=== PATIENT | female | born 1990 | race African-American/Black ===

== ENCOUNTER 2016-04-01 13:51 | Emergency (ER) | payer SELFPAY ==
--- NOTE | 2016-04-01 14:40 | ER Document Report ---
ED Medical Screen (RME) - General Stated Complaint: FLU LIKE SYMPTOMS Mode of Arrival: Ambulatory Information source: Patient Notes: 26 y/o F presents to ED complaining of generalized body aches, cough, and subjective fever since yesterday. I have greeted and performed a rapid initial assessment of this patient. A comprehensive ED assessment and evaluation of the patient, analysis of test results and completion of the medical decision making process will be conducted by additional ED providers. TRAVEL OUTSIDE OF THE [place] IN LAST 30 DAYS: No - Related Data Allergies/Adverse Reactions: No Known Allergies Allergy (Verified 04/01/16 14:37) Past Medical History - Immunizations Hx Diphtheria, Pertussis, Tetanus Vaccination: Yes Physical Exam - Vital signs Vitals: Temp Pulse Resp BP Pulse Ox 98.0 F 82 20 140/93 H 100 04/01/16 14:10 04/01/16 14:10 04/01/16 14:10 04/01/16 14:10 04/01/16 14:10 - Respiratory Respiratory status: No respiratory distress Breath sounds: Normal. No: Rhonchi, Wheezing Course - Vital Signs Vital signs: Temp Pulse Resp BP Pulse Ox 98.0 F 82 20 140/93 H 100 04/01/16 14:10 04/01/16 14:10 04/01/16 14:10 04/01/16 14:10 04/01/16 14:10
[2016-04-01 15:37] LABS: APPEARANCE,URINE SLIGHTLY-CLOUDY; BILIRUBIN,URINE NEGATIVE (NEGATIVE); GLUCOSE, URINE NEGATIVE (NEGATIVE); KETONES,URINE NEGATIVE (NEGATIVE); LEUKOCYTE ESTERASE,URINE NEGATIVE (NEGATIVE); NITRITE,URINE NEGATIVE (NEGATIVE); PROTEIN,URINE NEGATIVE (NEGATIVE); URINE SPECIFIC GRAVITY 1.027
--- NOTE | 2016-04-01 15:56 | ER Document Report ---
ED Flu Like - General Chief Complaint: Cough Stated Complaint: FLU LIKE SYMPTOMS Time seen by provider: 15:51 Mode of Arrival: Ambulatory Information source: Patient Notes: 26-year-old female presents to ED for flulike symptoms with nausea and slight difficulty breathing with body aches. TRAVEL OUTSIDE OF THE [place] IN LAST 30 DAYS: No - HPI Onset: This evening Timing/Duration: Intermittent Quality of pain: Achy Severity: Moderate Pain Level: 3 CO exposure: No Associated symptoms: Chills, Nonproductive cough, Fever, Nausea, Sore throat Similar symptoms previously: Yes Recently seen / treated by doctor: No - Related Data Allergies/Adverse Reactions: No Known Allergies Allergy (Verified 04/01/16 14:37) Past Medical History - General Information source: Patient - Social History Smoking Status: Current Every Day Smoker Cigarette use (# per day): Yes - half pack a day Chew tobacco use (# tins/day): No Smoking Education Provided: Yes - less than 2 minutes Frequency of alcohol use: Occasional Drug Abuse: Marijuana Occupation: [employer] Lives with: Parents Family History: CAD, DM, Hyperlipidemia, Hypertension, Malignancy, Thyroid Disfunction Patient has suicidal ideation: No Patient has homicidal ideation: No - Past Medical History Cardiac Medical History: Reports: None Pulmonary Medical History: Reports: None EENT Medical History: Reports: None Neurological Medical History: Reports: None Endocrine Medical History: Reports: None Renal/ Medical History: Reports: Hx Pelvic Inflammatory Disease Malignancy Medical History: Reports: None GI Medical History: Reports: None Musculoskeltal Medical History: Reports None Skin Medical History: Reports None Psychiatric Medical History: Reports: None Traumatic Medical History: Reports: None Infectious Medical History: Reports: None Surgical Hx: Negative Past Surgical History: Reports: None - Immunizations Immunizations up to date: Yes Hx Diphtheria, Pertussis, Tetanus Vaccination: Yes Review of Systems - Review of Systems Constitutional: Fever, Recent illness EENT: Nose congestion, Sinus pressure, Sinus discharge, Throat pain Cardiovascular: No symptoms reported Respiratory: Cough Gastrointestinal: No symptoms reported Genitourinary: No symptoms reported Female Genitourinary: No symptoms reported Musculoskeletal: No symptoms reported Skin: No symptoms reported Hematologic/Lymphatic: No symptoms reported Neurological/Psychological: No symptoms reported -: Yes All other systems reviewed and negative Physical Exam - Vital signs Vitals: Temp Pulse Resp BP Pulse Ox 98.0 F 82 20 140/93 H 100 04/01/16 14:10 04/01/16 14:10 04/01/16 14:10 04/01/16 14:10 04/01/16 14:10 Interpretation: Normal, Hypertensive - 140/93 - General General appearance: Appears well, Alert - HEENT Head: Normocephalic, Atraumatic Eyes: Normal Pupils: PERRL Ears: Normal External canal: Normal Tympanic membrane: Normal Sinus: Normal Nasal: Purulent discharge, Swelling Mouth/Lips: Normal Mucous membranes: Normal Pharynx: Post nasal drainage. No: Erythema, Exudate, Peritonsillar abscess, Retropharyngeal abscess, Tonsillar hypertrophy, Uvular edema, Potential airway comprom. Neck: Normal - Respiratory Respiratory status: No respiratory distress Chest status: Nontender Breath sounds: Normal Chest palpation: Normal - Cardiovascular Rhythm: Regular Heart sounds: Normal auscultation Murmur: No - Abdominal Inspection: Normal Distension: No distension Bowel sounds: Normal Tenderness: Nontender Organomegaly: No organomegaly - Back Back: Normal, Nontender - Extremities General upper extremity: Normal inspection, Nontender, Normal color, Normal ROM , Normal temperature General lower extremity: Normal inspection, Nontender, Normal color, Normal ROM , Normal temperature, Normal weight bearing. No: Terrell's sign - Neurological Neuro grossly intact: Yes Cognition: Normal Orientation: AAOx4 Luis F Coma Scale Eye Opening: Spontaneous Luis F Coma Scale Verbal: Oriented Luis F Coma Scale Motor: Obeys Commands [place] Coma Scale Total: 15 Speech: Normal Motor strength normal: LUE, RUE, LLE, RLE Sensory: Normal - Psychological Associated symptoms: Normal affect, Normal mood - Skin Skin Temperature: Warm Skin Moisture: Dry Skin Color: Normal Course - Vital Signs Vital signs: Temp Pulse Resp BP Pulse Ox 98.0 F 82 20 140/93 H 100 04/01/16 14:10 04/01/16 14:10 04/01/16 14:10 04/01/16 14:10 04/01/16 14:10 - Laboratory Laboratory results interpreted by me: 04/01/16 15:15 Urine Urobilinogen 2.0 H Discharge - Discharge Clinical Impression: URI (upper respiratory infection) Qualifiers: URI type: unspecified URI Qualified Code(s): J06.9 - Acute upper respiratory infection, unspecified Condition: Stable Disposition: HOME, SELF-CARE Instructions: Family Physicians / Practices Additional Instructions: UPPER RESPIRATORY ILLNESS: You have a viral infection of the respiratory passages -- a "cold." This common infection causes nasal congestion, drainage, and often sore throat and cough. It is highly contagious. The disease usually lasts about 10 to 14 days. There is no "cure" for the viral infection -- it must run its course. If there is a complication, such as bacterial infection in the nose, sinuses, middle ear, or bronchial tubes, antibiotics may be required. The antibiotics won't affect the virus. Drink plenty of fluids. A humidifier may help. An expectorant medication or decongestant may make you more comfortable. Use acetaminophen or ibuprofen for fever or aches. See the doctor if fever persists over two days, if there is any significant worsening of your symptoms, or if you simply fail to improve as expected. DECONGESTANT MEDICATION: A decongestant medicine has been suggested. Often this medicine is combined in the same tablet with an antihistamine or expectorant. This type of medicine is helpful in treating a bad cold or sinus condition, as well as in treatment of the nasal congestion of hay fever. It is not of much benefit for lung infections. Decongestant medicines are related to stimulants. They can cause an increase in blood pressure and heart rate. Persons with heart disease and high blood pressure should not take decongestants without discussing this with the physician. If you develop palpitations, chest pain, headache, or tremors, stop the medicine and consult your physician. COUGH-SUPPRESSANT & EXPECTORANT MEDICATION: You are to use a cough medication as needed for relief of symptoms. This medicine is a combination of an expectorant (to make the mucous thinner and more easily "coughed up") and a cough suppressant (to reduce the frequency of coughing). The cough-suppressant medicine is related to narcotics. You may experience mild nausea and sleepiness. Some patients who are very sensitive to narcotics may have stomach pain from this medicine. Taking the medicine with food reduces these side effects. Do not drive or work with machinery until you know how this medicine affects you. The expectorant should have no side effects. Iodine-containing expectorants (such as organidin) should not be taken by persons with active thyroid disease unless approved by your doctor. Call the doctor if you develop shortness of breath, hives, rash, itching, lightheadedness, or severe nausea and vomiting. USE OF ACETAMINOPHEN (Tylenol): Acetaminophen may be taken for pain relief or fever control. It's much safer than aspirin, offering a wider range of "safe" dosages. It is safe during . Some brand names are Tylenol, Panadol, Datril, Anacin 3, Tempra, and Liquiprin. Acetaminophen can be repeated every four hours. The following are maximum recommended dosages: >89 pounds or adults 650 mg to 900 mg Acetaminophen can be repeated every four hours. Maximum dose not to exceed 4000 mg a day. SMOKING: If you smoke, you should stop smoking. The tar and chemicals in cigarette smoke are harmful. Smoking has been shown to cause: emphysema chronic bronchitis lung cancer mouth and throat cancer stomach and pancreas cancer premature aging defects In addition, smoking increases ear and lung infections in children of smokers. FOLLOW-UP CARE: If you have been referred to a physician for follow-up care, call the physician s office for an appointment as you were instructed or within the next two days. If you experience worsening or a significant change in your symptoms, notify the physician immediately or return to the Emergency Department at any time for re-evaluation. Prescriptions: Ondansetron [Zofran Odt 4 mg Tablet] 1 tab PO Q6H #15 tab.rapdis Forms: Elevated Blood Pressure, Smoking Cessation Education, Return to Work
[2016-04-01 16:04] VITALS: BP 137/86
== END 2016-04-01 16:01 | disposition home or self-care (01) ==
LOC: ER 13:51
DX: J06.9 Acute upper respiratory infection, unspecified (principal); R06.00 Dyspnea, unspecified; M79.1 Myalgia; R68.83 Chills (without fever); F17.210 Nicotine dependence, cigarettes, uncomplicated
CPT/HCPCS: 81001; 81025; 87804; 99283

== ENCOUNTER 2016-06-05 11:41 | Emergency (ER) | payer SELFPAY ==
--- NOTE | 2016-06-05 11:57 | ER Document Report ---
ED Medical Screen (RME) - General Stated Complaint: ABDOMINAL PAIN Mode of Arrival: Ambulatory Information source: Patient Notes: Patient reports lower abdominal pain for the past 3 days. Patient was seen at [facility], and diagnosed with a viral illness given nausea medications. Patient denies any current vomiting or diarrhea symptoms continues with abdominal pain. No urinary symptoms, no vaginal bleeding or discharge. hx: PID, ovarian cyst I have greeted and performed a rapid initial assessment of this patient. A comprehensive ED assessment and evaluation of the patient, analysis of test results and completion of the medical decision making process will be conducted by additional ED providers. TRAVEL OUTSIDE OF THE [place] IN LAST 30 DAYS: No - Related Data Allergies/Adverse Reactions: No Known Allergies Allergy (Verified 06/05/16 11:55) Past Medical History Renal/ Medical History: Reports: Hx Pelvic Inflammatory Disease. Denies: Hx Peritoneal Dialysis - Immunizations Immunizations up to date: Yes Hx Diphtheria, Pertussis, Tetanus Vaccination: Yes Physical Exam - Vital signs Vitals: Temp Pulse Resp BP Pulse Ox 98.7 F 92 16 144/94 H 99 06/05/16 11:45 06/05/16 11:45 06/05/16 11:45 06/05/16 11:45 06/05/16 11:45 - Abdominal Tenderness: Tender - Lower abdomen Course - Vital Signs Vital signs: Temp Pulse Resp BP Pulse Ox 98.7 F 92 16 144/94 H 99 06/05/16 11:45 06/05/16 11:45 06/05/16 11:45 06/05/16 11:45 06/05/16 11:45
[2016-06-05 12:39] LABS: APPEARANCE,URINE CLEAR; BILIRUBIN,URINE NEGATIVE (NEGATIVE); GLUCOSE, URINE NEGATIVE (NEGATIVE); KETONES,URINE 20 mg/dL (NEGATIVE); LEUKOCYTE ESTERASE,URINE NEGATIVE (NEGATIVE); NITRITE,URINE NEGATIVE (NEGATIVE); PROTEIN,URINE NEGATIVE (NEGATIVE); URINE SPECIFIC GRAVITY 1.012; UROBILINOGEN,URINE NEGATIVE mg/dL (<2.0)
[2016-06-05 12:42] LABS: ABSOLUTE BASOPHILS # (AUTO) 0.1 10^3/uL (0.0-0.2); ABSOLUTE EOSINOPHILS # (AUTO) 0.1 10^3/uL (0.0-0.6); ABSOLUTE LYMPHOCYTES (AUTO) 2.1 10^3/uL (0.5-4.7); ABSOLUTE MONOCYTES (AUTO) 0.6 10^3/uL (0.1-1.4); ABSOLUTE NEUT (AUTO) 5.7 10^3/uL (1.7-8.2); BASOPHILS % (AUTO) 0.6 % (0-2); EOSINOPHILS % (AUTO) 0.7 % (0-6); HEMATOCRIT 39.8 % (36.0-47.0); HEMOGLOBIN 13.1 g/dL (12.0-15.5); HGB HCT DIFFERENCE -0.5; LYMPHOCYTES % (AUTO) 25.2 % (13-45); MEAN CORPUSCULAR HEMOGLOBIN 27.8 pg (27.0-33.4); MEAN CORPUSCULAR HGB CONC 32.9 g/dL (32.0-36.0); MEAN CORPUSCULAR VOLUME 84 fl (80-97); MONOCYTES % (AUTO) 7.2 % (3-13); RED BLOOD COUNT 4.71 10^6/uL (3.72-5.28); SEGMENTED NEUTROPHILS % (AUTO) 66.3 % (42-78); WHITE BLOOD COUNT 8.5 10^3/uL (4.0-10.5)
[2016-06-05 13:00] LABS: ALANINE AMINOTRANSFERASE 22 U/L (9-52); ALBUMIN 4.6 g/dL (3.5-5.0); ALKALINE PHOSPHATASE 58 U/L (38-126); ANION GAP 11 (5-19); ASPARTATE AMINO TRANSFERASE 19 U/L (14-36); BILIRUBIN,DIRECT 0.1 mg/dL (0.0-0.4); BILIRUBIN,TOTAL 1.1 mg/dL (0.2-1.3); BLOOD UREA NITROGEN 6 mg/dL (7-20); CALCIUM 10.1 mg/dL (8.4-10.2); CARBON DIOXIDE 27 mmol/L (22-30); CHLORIDE 105 mmol/L (98-107); CREATININE RESULT 0.67 mg/dL (0.52-1.25); GLUCOSE 76 mg/dL (75-110); LIPASE 50.9 U/L (23-300); POTASSIUM 3.8 mmol/L (3.6-5.0); SODIUM 143.2 mmol/L (137-145); TOTAL PROTEIN 7.5 g/dL (6.3-8.2)
[2016-06-05] MEDS ORDERED: NORMAL SALINE 1000 ML 1,000 ML IV ONE (16:16)
--- NOTE | 2016-06-05 16:38 | ER Document Report ---
ED GI/ - General Chief Complaint: Lower Abdominal Pain Stated Complaint: ABDOMINAL PAIN Time seen by provider: 16:10 Mode of Arrival: Ambulatory Information source: Patient Notes: 26-year-old female presents to ED for lower abdominal pain for 3 days. She states she's seen and [facility] diagnosed with a viral illness given nausea medicine. Patient to states she is no longer nausea or vomiting or diarrhea but she does continue to have lower abdominal pain. She denies any urinary symptoms or vaginal bleeding. She does have a history of PID and ovarian cyst. She states she has had pain with intercourse for the last week. TRAVEL OUTSIDE OF THE [place] IN LAST 30 DAYS: No - HPI Patient complains to provider of: Pelvic pain Onset: Other - 3 days Timing/Duration: Intermittent Quality of pain: Achy, Cramping Severity at maximum: Moderate Severity in ED: Moderate Pain Level: 3 Location: Pelvis Vaginal bleeding (Compared to normal period): None Associated symptoms: Vaginal discharge - White discharge. denies: Diarrhea, Nausea, Urinary hesitancy, Urinary frequency, Urinary retention, Urinary urgency Exacerbated by: Other - Sexual intercourse and movement Relieved by: Denies Similar symptoms previously: Yes Recently seen / treated by doctor: No - Related Data Allergies/Adverse Reactions: No Known Allergies Allergy (Verified 06/05/16 11:55) Past Medical History - General Information source: Patient - Social History Smoking Status: Current Some Day Smoker Cigarette use (# per day): Yes Chew tobacco use (# tins/day): No Smoking Education Provided: Yes - than 2 minutes Frequency of alcohol use: Occasional Drug Abuse: Marijuana Lives with: Spouse/Significant other Family History: Reviewed & Not Pertinent Patient has suicidal ideation: No Patient has homicidal ideation: No - Past Medical History Cardiac Medical History: Reports: None Pulmonary Medical History: Reports: None Neurological Medical History: Reports: None Endocrine Medical History: Reports: None Renal/ Medical History: Reports: Hx Ovarian Cysts, Hx Pelvic Inflammatory Disease GI Medical History: Reports: None Musculoskeltal Medical History: Reports None Skin Medical History: Reports None Psychiatric Medical History: Reports: None Traumatic Medical History: Reports: None Infectious Medical History: Reports: None Surgical Hx: Negative - Immunizations Immunizations up to date: Yes Hx Diphtheria, Pertussis, Tetanus Vaccination: Yes Review of Systems - Review of Systems Constitutional: No symptoms reported EENT: No symptoms reported Cardiovascular: No symptoms reported Respiratory: No symptoms reported Gastrointestinal: No symptoms reported Genitourinary: No symptoms reported Female Genitourinary: Vaginal discharge - White discharge, Other - Pelvic pain pain with sex Musculoskeletal: No symptoms reported Skin: No symptoms reported Hematologic/Lymphatic: No symptoms reported Neurological/Psychological: No symptoms reported -: Yes All other systems reviewed and negative Physical Exam - Vital signs Vitals: Temp Pulse Resp BP Pulse Ox 98.7 F 92 16 144/94 H 99 06/05/16 11:45 06/05/16 11:45 06/05/16 11:45 06/05/16 11:45 06/05/16 11:45 Interpretation: Normal - General General appearance: Appears well, Alert - HEENT Head: Normocephalic, Atraumatic Eyes: Normal Pupils: PERRL - Respiratory Respiratory status: No respiratory distress Chest status: Nontender Breath sounds: Normal Chest palpation: Normal - Cardiovascular Rhythm: Regular Heart sounds: Normal auscultation Murmur: No - Abdominal Inspection: Normal Distension: No distension Bowel sounds: Normal Tenderness: Tender - Bilateral pelvic pain Organomegaly: No organomegaly - Back Back: Normal, Nontender - Extremities General upper extremity: Normal inspection, Nontender, Normal color, Normal ROM , Normal temperature General lower extremity: Normal inspection, Nontender, Normal color, Normal ROM , Normal temperature, Normal weight bearing. No: Terrell's sign - Neurological Neuro grossly intact: Yes Cognition: Normal Orientation: AAOx4 Luis F Coma Scale Eye Opening: Spontaneous Luis F Coma Scale Verbal: Oriented Luis F Coma Scale Motor: Obeys Commands [place] Coma Scale Total: 15 Speech: Normal Motor strength normal: LUE, RUE, LLE, RLE Sensory: Normal - Psychological Associated symptoms: Normal affect, Normal mood - Skin Skin Temperature: Warm Skin Moisture: Dry Skin Color: Normal Course - Vital Signs Vital signs: Temp Pulse Resp BP Pulse Ox 98.5 F 82 16 132/81 H 99 06/05/16 18:28 06/05/16 18:28 06/05/16 18:28 06/05/16 18:28 06/05/16 18:28 - Laboratory Result Diagrams: 06/05/16 12:10 06/05/16 12:10 Laboratory results interpreted by me: 06/05/16 06/05/16 12:08 12:10 BUN 6 L Urine Ketones 20 H Discharge - Discharge Clinical Impression: Pelvic pain Condition: Stable Disposition: HOME, SELF-CARE Instructions: Family Physicians / Practices Additional Instructions: Pelvic Pain There are many causes of pain in the pelvic area. The cause could be the tubes, ovaries, uterus, intestines, appendix, pelvic muscles and connective tissue, or the urinary tract. The cause of your pelvic pain is not clear. However, it seems safe to treat you outside the hospital. If the pain sounds like a temporary problem, we sometimes wait to see if it goes away. Other patients may need additional tests, such as pelvic ultrasound or cultures. Conditions may change. Call us or come back for reexamination if any problems occur, such as: (1) Pain that becomes more severe, steady, or becomes concentrated in one specific area. Also, pain that is more severe with movement or coughing. (2) Vomiting that persists or becomes more frequent. (3) Blood in the vomitus, urine, or bowel movements. Blood in the stool may have a tarry or black appearance. (4) Shaking chills or fever greater than 100 degrees. (5) The abdomen becomes more distended or swollen. (6) Bowel movements cease. (7) Heavy vaginal bleeding. Intravenous (IV) Fluids As part of your care today, you received intravenous (IV) fluids. IV fluids are administered to patients who are dehydrated or to those who have certain chemical (electrolyte) abnormalities that need correcting. CEPHALOSPORINS: An antibiotic of the cephalosporin class has been prescribed. This type of antibiotic covers a wide variety of infections, including those of the skin, lungs, middle ear, and urinary tract. This antibiotic is somewhat similar to the penicillin family. In rare cases , a person who is allergic to penicillin will also be allergic to this medication. If you have had a severe allergic reaction to penicillin, and have not taken this antibiotic since that time, notify your doctor. Antibiotics which cover many germs ("broad spectrum" antibiotics) are more likely to cause diarrhea or "yeast" infections. Women prone to vaginal yeast problems may suffer an attack after taking this antibiotic. In infants, oral thrush (white spots "stuck" on the cheek) or yeast diaper rash may result. See your doctor if these problems occur. Call the doctor at once if you develop hives, itching, shortness of breath , or lightheadedness. AZITHROMYCIN: Azithromycin (Zithromax) is a broad spectrum antibiotic in the same class as erythromycin. It can treat a variety of bacterial infections, but is most frequently used for respiratory infections. Azithromycin is extremely long-lasting. It accumulates in body tissues and continues to kill bacteria for many days. In order to improve absorption, Azithromycin should be taken at least one hour before or two hours after a meal. It does not have the same strong tendency to upset the stomach as erythromycin and is usually very well tolerated. Patients who have had a rash or other true allergic reactions to erythromycin should not take this medication. Call if you develop gastrointestinal distress, severe diarrhea, rash, hives, itching, or shortness of breath. FOLLOW-UP CARE: If you have been referred to a physician for follow-up care, call the physician s office for an appointment as you were instructed or within the next two days. If you experience worsening or a significant change in your symptoms, notify the physician immediately or return to the Emergency Department at any time for re-evaluation. Forms: Elevated Blood Pressure, Smoking Cessation Education, Return to Work
[2016-06-05] MEDS ORDERED: CEFTRIAXONE INJ 250 MG VIAL IM ONE (18:13)
[2016-06-05] MEDS ORDERED: AZITHROMYCIN 250 MG TABLET PO ONE (18:13)
[2016-06-05] MEDS ORDERED: LIDOCAINE 1% INJ-PF (10 MG/ML) 30 ML SDV INJ ONE (18:13)
[2016-06-05 18:29] VITALS: BP 132/81
[2016-06-05 18:57] LABS: CHLAM PCR NOT DETECTED (NOT DETECT)
== END 2016-06-05 18:32 | disposition home or self-care (01) ==
LOC: ER 11:41
DX: N94.10 Unspecified dyspareunia (principal); R10.2 Pelvic and perineal pain; N89.8 Other specified noninflammatory disorders of vagina; F17.210 Nicotine dependence, cigarettes, uncomplicated; Z71.6 Tobacco abuse counseling; Z87.42 Personal history of other diseases of the female genital tract
CPT/HCPCS: 99284; 96372; 96360; 36415; 83690; 84703; 85025; 80053; 81001; 87491; 87591; J3490; J7030; J0696

== ENCOUNTER 2016-06-08 01:21 | Emergency (ER) | payer BC ==
[2016-06-08 02:32] LABS: ABSOLUTE EOSINOPHILS # (AUTO) 0.1 10^3/uL (0.0-0.6); ABSOLUTE LYMPHOCYTES (AUTO) 0.6 10^3/uL (0.5-4.7); ABSOLUTE MONOCYTES (AUTO) 0.7 10^3/uL (0.1-1.4); ABSOLUTE NEUT (AUTO) 8.2 10^3/uL (1.7-8.2); BASOPHILS % (AUTO) 0.3 % (0-2); EOSINOPHILS % (AUTO) 1.1 % (0-6); HEMATOCRIT 39.8 % (36.0-47.0); HEMOGLOBIN 13.5 g/dL (12.0-15.5); HGB HCT DIFFERENCE 0.7; LYMPHOCYTES % (AUTO) 5.8 % (13-45); MEAN CORPUSCULAR HEMOGLOBIN 28.3 pg (27.0-33.4); MEAN CORPUSCULAR HGB CONC 33.9 g/dL (32.0-36.0); MEAN CORPUSCULAR VOLUME 84 fl (80-97); MONOCYTES % (AUTO) 6.9 % (3-13); RED BLOOD COUNT 4.75 10^6/uL (3.72-5.28); RED CELL DISTRIBUTION WIDTH 13.8 % (11.5-14.0); SEGMENTED NEUTROPHILS % (AUTO) 85.9 % (42-78); WHITE BLOOD COUNT 9.6 10^3/uL (4.0-10.5)
[2016-06-08] MEDS ORDERED: MORPHINE SULFATE 10 MG/ML INJ IV ONE (02:36)
[2016-06-08] MEDS ORDERED: ONDANSETRON HCL INJ/PF 4 MG/2 ML SDV IV ONE (02:36)
[2016-06-08] MEDS ORDERED: NORMAL SALINE 1000 ML 1,000 ML IV ONE (02:36)
--- NOTE | 2016-06-08 02:41 | ER Document Report ---
ED General - General Chief Complaint: Abdominal Pain Stated Complaint: ABDOMINAL PAIN Mode of Arrival: Ambulatory Information source: Patient Notes: This is a 26-year-old previously healthy female who presents for evaluation of lower abdominal pain. She states she has had lower abdominal discomfort for the past week and this is her third visit for the same. One week ago she states she was seen at [facility] and was diagnosed with a stomach virus. 3 days ago she presented to the emergency department here with persistent lower abdominal discomfort and was given antibiotics for possible PID at that point. She states she's been compliant with her antibiotics but that tonight her lower abdominal pain has gotten worse. She has had 2 episodes of diarrhea today. She also had nausea and vomiting this evening. She denies any fevers or chills. TRAVEL OUTSIDE OF THE [place] IN LAST 30 DAYS: No - Related Data Allergies/Adverse Reactions: No Known Allergies Allergy (Verified 06/05/16 11:55) Past Medical History - General Information source: Patient - Social History Smoking Status: Never Smoker Chew tobacco use (# tins/day): No Frequency of alcohol use: Rare Drug Abuse: None Family History: Reviewed & Not Pertinent Patient has suicidal ideation: No Patient has homicidal ideation: No Renal/ Medical History: Reports: Hx Ovarian Cysts, Hx Pelvic Inflammatory Disease. Denies: Hx Peritoneal Dialysis Surgical Hx: Negative - Immunizations Immunizations up to date: Yes Hx Diphtheria, Pertussis, Tetanus Vaccination: Yes Review of Systems - Review of Systems Notes: REVIEW OF SYSTEMS: CONSTITUTIONAL : Denies fever, chills, or sweats. Denies recent illness. EENT: Denies eye, ear, throat, or mouth pain or symptoms. Denies nasal or sinus congestion. CARDIOVASCULAR: Denies chest pain. RESPIRATORY: Denies cough, cold, or chest congestion. Denies shortness of breath, difficulty breathing, or wheezing. GASTROINTESTINAL: As per history of present illness GENITOURINARY: Denies difficulty urinating, painful urination, burning, frequency, or blood in urine. FEMALE GENITOURINARY: Denies vaginal bleeding LMP:05/07 MUSCULOSKELETAL: Denies neck or back pain or joint pain or swelling. SKIN: Denies rash or skin lesions. HEMATOLOGIC : Denies easy bruising or bleeding. LYMPHATIC: Denies swollen, enlarged glands. NEUROLOGICAL: Denies altered mental status or loss of consciousness. Denies headache. PSYCHIATRIC: Denies anxiety or stress or depression. ALL OTHER SYSTEMS REVIEWED AND NEGATIVE. Physical Exam - Vital signs Vitals: Temp Pulse Resp BP Pulse Ox 98.3 F 103 H 20 150/102 H 100 06/08/16 01:51 06/08/16 01:51 06/08/16 01:51 06/08/16 01:51 06/08/16 01:51 - Notes Notes: PHYSICAL EXAMINATION: GENERAL: Well-appearing, well-nourished and in mild distress secondary to lower abdominal pain. She is pleasant and conversant.. HEAD: Atraumatic, normocephalic. EYES: Pupils equal round and reactive to light, extraocular movements intact, sclera anicteric, conjunctiva are normal. ENT: nares patent, oropharynx clear without exudates. Moist mucous membranes. NECK: Normal range of motion, supple without lymphadenopathy LUNGS: Breath sounds clear to auscultation bilaterally and equal. No wheezes rales or rhonchi. HEART: Regular rate and rhythm without murmurs ABDOMEN: Soft, mild lower abdominal tenderness to palpation. Normoactive bowel sounds. No guarding, no rebound. No peritonitis. No masses appreciated. EXTREMITIES: Normal range of motion NEUROLOGICAL: Cranial nerves grossly intact. No gross focal motor or sensory deficits appreciated.. PSYCH: Normal mood, normal affect. SKIN: Warm, Dry, normal turgor, no rashes or lesions noted. Course - Re-evaluation Re-evalutation: 06/08/16 07:05 Patient has remained comfortable and hemodynamically stable throughout her ER stay. Her CT and ultrasound demonstrates contracted gallbladder with small amount of pericholecystic fluid. The appearance of this is thought to favor hepatitis versus cholecystitis. At this point clinically her symptoms are more consistent with hepatitis that she does not have right upper quadrant pain but does have generalized abdominal discomfort nausea and vomiting and diarrhea. Hepatitis panel has been sent. Patient will follow up with her primary care physician and/or GI this week for further evaluation. We'll treat her supportively and symptomatically until then. Strict return precautions were discussed and patient and family are comfortable with this plan - Vital Signs Vital signs: Temp Pulse Resp BP Pulse Ox 98.3 F 103 H 20 150/102 H 100 06/08/16 01:51 06/08/16 01:51 06/08/16 01:51 06/08/16 01:51 06/08/16 01:51 - Laboratory Result Diagrams: 06/08/16 02:23 06/08/16 02:23 Laboratory results interpreted by me: 06/08/16 06/08/16 06/08/16 02:23 02:23 03:39 Plt Count 149 L Seg Neutrophils % 85.9 H Lymphocytes % 5.8 L AST 100 H ALT 66 H Ur Leukocyte Esterase TRACE H - Diagnostic Test Radiology reviewed: Reports reviewed Discharge - Discharge Clinical Impression: Nausea vomiting and diarrhea, Hepatitis Condition: Stable Disposition: HOME, SELF-CARE Additional Instructions: Hepatitis You have hepatitis. Hepatitis is an inflammation of the liver, usually caused by a virus. Usually there is a week or so of malaise, fatigue, aches, lack of appetite, and headache, followed by nausea and vomiting, dark urine, and jaundice. Cases of hepatitis A, B, or C are usually reported to the health department. Tests will determine what type of hepatitis you have: (1) Hepatitis B: This type of hepatitis is not highly contagious. It is usually transmitted by needles or sexual contact. The length of the illness is longer (a couple of months), and the chance of long-term complications is greater. Special immune globulin is available for sexual partners or others exposed to blood or body fluids. (2) Hepatitis A (infectious hepatitis): Hepatitis A is more contagious, but has a shorter length of illness (2-4 weeks). Close personal contacts may need gamma globulin shots to prevent hepatitis. (3) Hepatitis C: This type of hepatitis is passed by blood products or sexual contact. The initial illness is less severe, but there is a good chance the hepatitis will become chronic. (4) Non-specific hepatitis: Other viruses can cause hepatitis. These cases of hepatitis usually go away without permanent damage. There is no cure for hepatitis. While you are ill, you may receive medication to make you more comfortable. Do not drink alcohol, and don't take any drug or medication not approved by your doctor. Rest and try to eat a healthy diet. Use good handwashing so you don't spread the virus. Shared toys should be cleaned with disinfectant. Clean the toilets, sinks, and counter surfaces in bathrooms. Launder clothing in hot water. Return or call the doctor if you develop increasing abdominal pain, severe vomiting, dehydration, severe weakness, or confusion. As discussed and instructed, he needs to follow up with the primary care physician this week. Rest and drink plenty of fluids. Also please contact the office of for GI follow-up. Return to the ER for fever, severe abdominal pain, yellowing of the eyes, persistent vomiting, or any worsening symptoms or concerns. Prescriptions: Promethazine HCl [Phenergan 25 mg Tablet] 1 tab PO Q6H PRN #15 tablet PRN Reason: Forms: Return to Work Referrals: MEGHAN PATEL MD [ACTIVE STAFF] - 06/10/16
[2016-06-08 02:50] LABS: ALANINE AMINOTRANSFERASE 66 U/L (9-52); ALBUMIN 4.1 g/dL (3.5-5.0); ALKALINE PHOSPHATASE 80 U/L (38-126); ANION GAP 13 (5-19); ASPARTATE AMINO TRANSFERASE 100 U/L (14-36); BILIRUBIN,DIRECT 0.2 mg/dL (0.0-0.4); BILIRUBIN,TOTAL 1.1 mg/dL (0.2-1.3); BLOOD UREA NITROGEN 12 mg/dL (7-20); CARBON DIOXIDE 23 mmol/L (22-30); CHLORIDE 107 mmol/L (98-107); CREATININE RESULT 0.82 mg/dL (0.52-1.25); GLUCOSE 103 mg/dL (75-110); LIPASE 118.4 U/L (23-300); POTASSIUM 3.6 mmol/L (3.6-5.0); SODIUM 142.7 mmol/L (137-145); TOTAL PROTEIN 6.8 g/dL (6.3-8.2)
[2016-06-08] MEDS ORDERED: PROMETHAZINE HCL INJ 25 MG/1 ML VIAL IM ONE (03:35)
[2016-06-08] MEDS ORDERED: PROMETHAZINE HCL INJ 25 MG/1 ML VIAL ONE (03:37)
[2016-06-08 04:14] LABS: APPEARANCE,URINE CLEAR; BILIRUBIN,URINE NEGATIVE (NEGATIVE); GLUCOSE, URINE NEGATIVE (NEGATIVE); KETONES,URINE NEGATIVE (NEGATIVE); LEUKOCYTE ESTERASE,URINE TRACE (NEGATIVE); NITRITE,URINE NEGATIVE (NEGATIVE); PROTEIN,URINE NEGATIVE (NEGATIVE); URINE SPECIFIC GRAVITY 1.006; UROBILINOGEN,URINE NEGATIVE mg/dL (<2.0)
[2016-06-08 07:54] VITALS: BP 123/62
--- NOTE | 2016-06-08 08:58 | EKG REPORT ---
SEVERITY:- BORDERLINE ECG - SINUS RHYTHM PROBABLE LEFT ATRIAL ABNORMALITY MILD NONSPECIFIC INFERIOR [facility] : Confirmed by: Melo Abbott MD 08-Jun-2016 08:58:26
== END 2016-06-08 07:54 | disposition home or self-care (01) ==
LOC: ER 01:21
DX: K75.9 Inflammatory liver disease, unspecified (principal); K82.0 Obstruction of gallbladder; R10.30 Lower abdominal pain, unspecified; R19.7 Diarrhea, unspecified; R11.2 Nausea with vomiting, unspecified
CPT/HCPCS: 93005; 99284; 96372; 96374; 96375; 36415; 83690; 84703; 85025; 80053; 81001; 80074; 76705; 74177; 93010; J2270; J2550; J2405

== ENCOUNTER 2016-08-24 07:09 | Emergency (ER) | payer BC ==
[2016-08-24] MEDS ORDERED: DOXYCYCLINE HYCLATE 100 MG TABLET PO ONE (08:21)
[2016-08-24] MEDS ORDERED: LIDOCAINE 1% INJ-PF (10 MG/ML) 30 ML SDV INJ ONE (08:21)
--- NOTE | 2016-08-24 08:22 | ER Document Report ---
ED Skin Rash/Insect Bite/Abscs - General Chief Complaint: Abscess Stated Complaint: SKIN PROBLEM Time Seen by Provider: 08/24/16 08:19 Mode of Arrival: Ambulatory Information source: Patient Notes: Patient is a 26-year-old female with a history of abscesses but no history of MRSA who presents to the ER today for abscess to the buttock. She states that this began to her right buttocks 3 days ago when she tried to pop it at home but has been unsuccessful. Patient denies any fever, chills, drainage from the area, states that it is very painful and is getting larger. TRAVEL OUTSIDE OF THE [place] IN LAST 30 DAYS: No - Related Data Allergies/Adverse Reactions: No Known Allergies Allergy (Verified 08/24/16 07:33) Past Medical History - General Information source: Patient - Social History Smoking Status: Unknown if Ever Smoked Family History: Reviewed & Not Pertinent Patient has suicidal ideation: No Patient has homicidal ideation: No Renal/ Medical History: Reports: Hx Ovarian Cysts, Hx Pelvic Inflammatory Disease. Denies: Hx Peritoneal Dialysis - Immunizations Immunizations up to date: Yes Hx Diphtheria, Pertussis, Tetanus Vaccination: Yes Review of Systems - Review of Systems Constitutional: No symptoms reported EENT: No symptoms reported Cardiovascular: No symptoms reported Respiratory: No symptoms reported Gastrointestinal: No symptoms reported Genitourinary: No symptoms reported Female Genitourinary: No symptoms reported Musculoskeletal: No symptoms reported Skin: See HPI Hematologic/Lymphatic: No symptoms reported Neurological/Psychological: No symptoms reported Physical Exam - Vital signs Vitals: Temp Pulse Resp BP Pulse Ox 97.8 F 69 20 140/89 H 100 08/24/16 07:33 08/24/16 07:33 08/24/16 07:33 08/24/16 07:33 08/24/16 07:33 - Notes Notes: PHYSICAL EXAMINATION: GENERAL: Well-appearing and in no acute distress. HEAD: Atraumatic, normocephalic. EYES: Pupils equal round and reactive to light, extraocular movements intact, sclera anicteric, conjunctiva are normal. NECK: Normal range of motion, supple without lymphadenopathy LUNGS: CTAB and equal. No wheezes rales or rhonchi. HEART: Regular rate and rhythm without murmurs EXTREMITIES: Normal range of motion, no pitting edema. No cyanosis. NEUROLOGICAL: Cranial nerves grossly intact. Normal sensory/motor exams. PSYCH: Normal mood, normal affect. SKIN: Warm, Dry, normal turgor, 3cm in diameter abscess, induration and fluctuance noted to right buttocks, tender to palpation Course - Re-evaluation Re-evalutation: 08/24/16 10:35 Test was incised and drained successfully, a culture was collected and is pending. Patient placed on doxycycline. - Vital Signs Vital signs: Temp Pulse Resp BP Pulse Ox 97.8 F 69 20 140/89 H 100 08/24/16 07:33 08/24/16 07:33 08/24/16 07:33 08/24/16 07:33 08/24/16 07:33 Discharge - Discharge Clinical Impression: Abscess of buttock Condition: Stable Disposition: HOME, SELF-CARE Instructions: Post Incision and Drainage, Oral Narcotic Medication ([facility]), Abscess ([facility]) Additional Instructions: Return immediately for any new or worsening symptoms. Follow up with primary care provider, call tomorrow to make followup appointment. Prescriptions: Doxycycline Hyclate 100 mg PO BID #14 capsule Forms: Return to Work
[2016-08-24] MEDS ORDERED: OXYCODONE-ACETAMINOPHEN 5-325 MG TABLET PO ONE (09:16)
[2016-08-24] MEDS ORDERED: HYDROCODONE/ACETAMINOPHEN 5-325 MG 6 TAB/DSPK PO PRN (10:42)
[2016-08-24 11:13] VITALS: BP 126/88
== END 2016-08-24 11:07 | disposition home or self-care (01) ==
LOC: ER 07:09
PROC: 0H98XZZ Drainage of Buttock Skin, External Approach (ICD-10-PCS; principal; 2016-08-24)
DX: L02.31 Cutaneous abscess of buttock (principal)
CPT/HCPCS: 99283; 87070; 87205; 87075; 10060; J3490

== ENCOUNTER 2016-12-30 10:30 | Emergency (ER) | payer BC ==
[2016-12-30] MEDS ORDERED: SULFAMETHOXAZOLE/TRIMETHOPRIM 800-160 MG TABLET PO ONE (11:02)
[2016-12-30] MEDS ORDERED: CEPHALEXIN 500 MG CAPSULE PO ONE (11:02)
[2016-12-30] MEDS ORDERED: HYDROCODONE/ACETAMINOPHEN 5-325 MG 6 TAB/DSPK PO PRN (11:02)
--- NOTE | 2016-12-30 11:07 | ER Document Report ---
ED Skin Rash/Insect Bite/Abscs - General Chief Complaint: Abscess Stated Complaint: SKIN ISSUES Time Seen by Provider: 12/30/16 10:43 Mode of Arrival: Ambulatory Information source: Patient Notes: 26-year-old female presents to ED with abscess to the left buttock that started 2 days ago became worse yesterday she also is having estimation of her active eczema. TRAVEL OUTSIDE OF THE [place] IN LAST 30 DAYS: No - HPI Patient complains to provider of: Skin rash/lesion, Tender/swollen area Onset: Other - 2 days ago Onset/Duration: Worse Quality of pain: Sharp, Throbbing Severity: Moderate Pain Level: 4 Skin Character: Abscess, Other - Eczema is exacerbation plaque rash Quality of rash: Itchy - Eczema, Painful Identify cause: No Exacerbated by: Sitting, Movement, Walking Relieved by: Denies Similar symptoms previously: Yes Recently seen / treated by doctor: No - Related Data Allergies/Adverse Reactions: No Known Allergies Allergy (Verified 08/24/16 07:33) Past Medical History - General Information source: Patient - Social History Smoking Status: Current Every Day Smoker Cigarette use (# per day): Yes - Half a pack per day Chew tobacco use (# tins/day): No Smoking Education Provided: Yes - Less than 1 minute Frequency of alcohol use: Occasional Drug Abuse: None Occupation: [employer] Lives with: Family Family History: DM, Hyperlipidemia, Hypertension, Thyroid Disfunction Patient has suicidal ideation: No Patient has homicidal ideation: No - Past Medical History Cardiac Medical History: Reports: None Pulmonary Medical History: Reports: None EENT Medical History: Reports: None Neurological Medical History: Reports: None Endocrine Medical History: Reports: None Renal/ Medical History: Reports: Hx Ovarian Cysts, Hx Pelvic Inflammatory Disease Malignancy Medical History: Reports: None GI Medical History: Reports: None Musculoskeltal Medical History: Reports None Skin Medical History: Reports Hx Cellulitis, Reports Hx Eczema Psychiatric Medical History: Reports: None Traumatic Medical History: Reports: None Infectious Medical History: Reports: None Surgical Hx: Negative - Immunizations Immunizations up to date: Yes Hx Diphtheria, Pertussis, Tetanus Vaccination: Yes Review of Systems - Review of Systems Constitutional: No symptoms reported EENT: No symptoms reported Cardiovascular: No symptoms reported Respiratory: No symptoms reported Gastrointestinal: No symptoms reported Genitourinary: No symptoms reported Female Genitourinary: No symptoms reported Musculoskeletal: No symptoms reported Skin: Other - Eczema exacerbation and abscess to left buttocks Hematologic/Lymphatic: No symptoms reported Neurological/Psychological: No symptoms reported -: Yes All other systems reviewed and negative Physical Exam - Vital signs Vitals: Temp Pulse BP Pulse Ox 98.7 F 90 146/97 H 100 12/30/16 10:35 12/30/16 10:35 12/30/16 10:35 12/30/16 10:35 Interpretation: Normal - General General appearance: Appears well, Alert - HEENT Head: Normocephalic, Atraumatic Eyes: Normal Pupils: PERRL - Respiratory Respiratory status: No respiratory distress Chest status: Nontender Breath sounds: Normal Chest palpation: Normal - Cardiovascular Rhythm: Regular Heart sounds: Normal auscultation Murmur: No - Abdominal Inspection: Normal Distension: No distension Bowel sounds: Normal Tenderness: Nontender Organomegaly: No organomegaly - Back Back: Normal, Nontender - Extremities General upper extremity: Normal inspection, Nontender, Normal color, Normal ROM , Normal temperature General lower extremity: Normal inspection, Nontender, Normal color, Normal ROM , Normal temperature, Normal weight bearing. No: Terrell's sign - Neurological Neuro grossly intact: Yes Cognition: Normal Orientation: AAOx4 Babcock Coma Scale Eye Opening: Spontaneous Babcock Coma Scale Verbal: Oriented Luis F Coma Scale Motor: Obeys Commands Luis F Coma Scale Total: 15 Speech: Normal Motor strength normal: LUE, RUE, LLE, RLE Sensory: Normal - Psychological Associated symptoms: Normal affect, Normal mood - Skin Skin Temperature: Warm Skin Moisture: Dry Skin Color: Normal Skin irregularity: Abscess - Left buttocks Location of irregularity: Extremities - Eczema Character of irregularity: Patchy, Urticarial Irregularity with: Scaling Course - Re-evaluation Re-evalutation: 12/30/16 19:33 Patient treated with [place] dispense pack, Septra and Keflex. Patient was discharged home after I&D with instructions to remove the packing in 48 hours. Patient instructed to return to the ED if any increase in symptoms. - Vital Signs Vital signs: Temp Pulse Resp BP Pulse Ox 97.9 F 91 16 157/92 H 97 12/30/16 12:36 12/30/16 12:36 12/30/16 12:36 12/30/16 12:36 12/30/16 12:36 Procedures - Incision and Drainage Right Buttock Time completed: 11:30 Type: Simple Anesthetic type: 1% Lidocaine mL's of anesthetic: 4 Blade size: 11 I&D procedure: Shurclens applied, Iodoform packing placed, Sterile dressing applied Incision Method: Incision made by scalpel Amount/type of drainage: large amount of purulent drainage Discharge - Discharge Clinical Impression: Abscess of buttock, left Eczema Qualifiers: Eczema type: unspecified Qualified Code(s): L30.9 - Dermatitis, unspecified Disposition: HOME-SNF (ED ONLY) Instructions: Family Physicians / Practices Additional Instructions: ABSCESS: You have an abscess (boil). This a pus-forming infection, usually due to staph. Some boils may be left to drain on their own, but most require lancing. From the time the tender lump first appears, it may be three or four days before the abscess is ready to prem. Local heat and rest help at this stage of treatment. An antibiotic may prevent spread of the infection. Once the abscess is opened, packing may be placed into it. This is done so pus is not sealed inside by premature closure of the cavity. The packing will be removed at your follow-up visit or you may be advised to remove it yourself at home. Sometimes this packing must be replaced a few times during healing. The wound will heal with surprisingly little scar. Depending on the size and location of an abscess, healing can take one to four weeks. You may shower and wash the area around the incision site two or three times a day. Antibiotics may be prescribed, but are usually not necessary after an abscess has been drained. If you develop fever, chills, worsening pain, or increasing swelling in the area, call the doctor or return immediately. POST INCISION AND DRAINAGE: You have had an incision made to allow drainage of an abscess. The incision must remain open so that pus and debris can drain from the wound. If the abscess cavity is large, packing is placed. This keeps the tissues from collapsing and trapping pus inside, while the body shrinks the cavity. The packing may need to be replaced every day or two. The physician will instruct you on the packing. Keep a bulky dressing over the area. Replace it if it becomes saturated with blood or pus. Do not disturb the packing (if present). You may shower and cleanse the area with gentle soap and warm water two or three times a day. Local warmth may be soothing, and may promote faster healing. Return if you develop high fever or chills, or if you note spreading redness, increasing swelling, or increasing tenderness. Atopic Dematitis (Eczema) You have atopic dermatitis, commonly called eczema. This is a chronic allergic skin condition. It often occurs in families with asthma and hay fever. The skin develops patches of redness, itching and scaling. Eczema often affects the back of the neck, back of the legs, and front of the arms. In children it affects the back of the knees, front of the elbows, and the cheeks. Itching is the main symptom. Eczema can be triggered by dryness, heat, sweating, and detergents or soap. Scratching makes the rash worse. Food or skin allergy can cause eczema. Emotional stress may also be a factor. Symptoms may get better or worse spontaneously. Generally, the treatment consists of: (1) avoid hot-water baths, (2) avoid using soap on your skin, (3) apply a cortisone cream as needed, and (4) use antihistamines for itching. For severe episodes, oral cortisone medication may be required. Call the doctor if you get worse despite treatment, or if signs of infection occur -- such as spreading redness, red streaks, swollen glands, swelling, or fever. ORAL NARCOTIC MEDICATION: You have been given a norco dispense pack for pain control. This medication is a narcotic. It's best taken with food, as nausea can result if taken on an empty stomach. Don't operate machinery or drive within six hours of taking this medication. Do not combine this medicine with alcohol, or with any medication which can cause sedation (such as cold tablets or sleeping pills) unless you get permission from the physician. Narcotics tend to cause constipation. If possible, drink plenty of fluids and eat a diet high in fiber and fruits. CEPHALEXIN: The antibiotic you've been prescribed is a member of the cephalosporin class. This type of antibiotic covers a wide variety of infections, including those of the skin, lungs, and urinary tract. It's useful for staph infections. This antibiotic is slightly similar to the penicillin family. In rare cases , a person who is allergic to penicillin will also be allergic to this medication. If you have had a severe allergic reaction to penicillin, and have not taken this antibiotic since that time, notify your doctor. Antibiotics which cover many germs ("broad spectrum" antibiotics) are more likely to cause diarrhea or "yeast" infections. Women prone to vaginal yeast problems may suffer an attack after taking this antibiotic. In infants, oral thrush (white spots "stuck" on the cheek) or yeast diaper rash may result. See your doctor if these problems occur. Call at once if you develop itching, hives , shortness of breath, or lightheadedness. TRIMETHOPRIM-SULFA: You have been given a prescription for trimethoprim-sulfa (TMS, Septra, Bactrim). This is a combination antibiotic of the sulfa class, often used for urinary tract infections, middle ear infections, bronchitis, shigella intestinal infection, and Pneumocystis pneumonia. TMS is usually well-tolerated. Occasional side effects include nausea and decreased appetite. Septra is not recommended for infants less than two months of age. Do not take this medication if you have experienced severe side effects or allergy to sulfa medicine. You should stop this medicine at once and contact your physician if you develop any rash, joint pain, shortness of breath, bruising, or jaundice ( yellow color in the skin), or if you develop any other new or unusual symptoms. FOLLOW-UP CARE: Most simple abscesses will not require a follow up visit. If you had packing placed in the abscess, remove it as instructed by the physician. If you have been referred to a physician for follow-up care, call the physicians office for an appointment as you were instructed or within the next two days. If you experience worsening or a significant change in your symptoms, return to the Emergency Department at any time for re-evaluation. Prescriptions: Cephalexin Monohydrate [Keflex 500 mg Capsule] 500 mg PO QID #20 capsule Pimecrolimus [Elidel] 30 gm TP BID #1 cream..g. Sulfamethoxazole/Trimethoprim [Septra-Ds 800-160 mg Tablet] 1 tab PO BID #20 tablet Forms: Elevated Blood Pressure, Smoking Cessation Education, Return to Work
[2016-12-30 13:33] VITALS: BP 157/92
== END 2016-12-30 12:48 ==
LOC: ER 10:30
DX: L02.31 Cutaneous abscess of buttock (principal); L30.9 Dermatitis, unspecified; F17.210 Nicotine dependence, cigarettes, uncomplicated; Z71.6 Tobacco abuse counseling
CPT/HCPCS: 99283; 87070; 87205; 87075; 10060; A6266; 87077

== ENCOUNTER 2017-01-23 13:49 | Emergency (ER) | payer BC ==
--- NOTE | 2017-01-23 14:27 | ER Document Report ---
ED Neck/Back Problem - General Chief Complaint: Back Pain Stated Complaint: BACK PAIN Time Seen by Provider: 01/23/17 14:13 Mode of Arrival: Ambulatory Information source: Patient Notes: 26-year-old female presents to ED for complaint of lower back pain 2 days. She denies any recent injuries. She states she has been working 6 days a week a lot of times and she thinks it might be just from overworking. She denies any loss of control of bowel or bladder, loss of muscle control, loss of sensation to the lower extremities or any saddle anesthesia. Patient states her last menstrual period was January 07 but she is not on any control. TRAVEL OUTSIDE OF THE [place] IN LAST 30 DAYS: No - HPI Onset: Other - 2 days Onset: Gradual Timing: Waxing and waning Quality of pain: Achy, Sharp Severity: Moderate Pain Level: 4 Recent injury: Possibly Associated symptoms: Like prior neck/back pain, Lower back pain. denies: Constipation, Incontinence, Motor loss, Numbness/tingling, Radiation to leg, Sensory loss, Unable to urinate, Upper back pain Exacerbated by: Movement of trunk, Sitting position Relieved by: Nothing Similar symptoms previously: Yes Recently seen / treated by doctor: No - Related Data Allergies/Adverse Reactions: No Known Allergies Allergy (Verified 01/23/17 13:54) Past Medical History - General Information source: Patient - Social History Smoking Status: Current Every Day Smoker Cigarette use (# per day): Yes - Half a pack per day Chew tobacco use (# tins/day): No Smoking Education Provided: Yes - Less than 2 minutes Frequency of alcohol use: Occasional Drug Abuse: None Occupation: [employer] Lives with: Family Family History: DM, Hyperlipidemia, Hypertension, Thyroid Disfunction. denies: Arthritis, CAD, COPD, CVA, Malignancy Patient has suicidal ideation: No Patient has homicidal ideation: No - Past Medical History Cardiac Medical History: Reports: None Pulmonary Medical History: Reports: None EENT Medical History: Reports: None Neurological Medical History: Reports: None Endocrine Medical History: Reports: None Renal/ Medical History: Reports: Hx Ovarian Cysts, Hx Pelvic Inflammatory Disease Malignancy Medical History: Reports: None GI Medical History: Reports: None Musculoskeltal Medical History: Reports Hx Musculoskeletal Trauma Skin Medical History: Reports Hx Cellulitis, Reports Hx Eczema Psychiatric Medical History: Reports: None Traumatic Medical History: Reports: None Infectious Medical History: Reports: None Surgical Hx: Negative Past Surgical History: Reports: None - Immunizations Immunizations up to date: Yes Hx Diphtheria, Pertussis, Tetanus Vaccination: Yes Review of Systems - Review of Systems Constitutional: No symptoms reported EENT: No symptoms reported Cardiovascular: No symptoms reported Respiratory: No symptoms reported Gastrointestinal: No symptoms reported Genitourinary: No symptoms reported Female Genitourinary: No symptoms reported Musculoskeletal: Back pain, Muscle pain, Muscle stiffness Skin: No symptoms reported Hematologic/Lymphatic: No symptoms reported Neurological/Psychological: No symptoms reported -: Yes All other systems reviewed and negative Physical Exam - Vital signs Vitals: Temp Pulse Resp BP Pulse Ox 98.5 F 77 20 156/93 H 98 01/23/17 13:55 01/23/17 13:55 01/23/17 13:55 01/23/17 13:55 01/23/17 13:55 Interpretation: Normal - General General appearance: Appears well, Alert - HEENT Head: Normocephalic, Atraumatic Eyes: Normal Pupils: PERRL - Respiratory Respiratory status: No respiratory distress Chest status: Nontender Breath sounds: Normal Chest palpation: Normal - Cardiovascular Rhythm: Regular Heart sounds: Normal auscultation Murmur: No - Abdominal Inspection: Normal Distension: No distension Bowel sounds: Normal Tenderness: Nontender Organomegaly: No organomegaly - Back Back: Normal, Tender. No: Deformity/step-off, CVA tenderness, Vertebra tenderness, Scars, Scoliosis, Wounds - Extremities General upper extremity: Normal inspection, Nontender, Normal color, Normal ROM , Normal temperature General lower extremity: Normal inspection, Nontender, Normal color, Normal ROM , Normal temperature, Normal weight bearing. No: Terrell's sign - Neurological Neuro grossly intact: Yes Cognition: Normal Orientation: AAOx4 Luis F Coma Scale Eye Opening: Spontaneous [place] Coma Scale Verbal: Oriented Luis F Coma Scale Motor: Obeys Commands [place] Coma Scale Total: 15 Speech: Normal Motor strength normal: LUE, RUE, LLE, RLE Sensory: Normal - Psychological Associated symptoms: Normal affect, Normal mood - Skin Skin Temperature: Warm Skin Moisture: Dry Skin Color: Normal Course - Re-evaluation Re-evalutation: 01/23/17 15:09 Patient denies any cauda equina, no saddle anesthesia, no loss of control of bowel bladder, no loss of sensation to the lower extremities. Patient states she thinks she has worked for many days and her back is hurting. We will send a urine to ensure she is not and treat her with ibuprofen and muscle relaxers. - Vital Signs Vital signs: Temp Pulse Resp BP Pulse Ox 98.3 F 73 20 146/98 H 100 01/23/17 16:27 01/23/17 16:27 01/23/17 16:27 01/23/17 16:27 01/23/17 16:27 - Laboratory Laboratory results interpreted by me: 01/23/17 14:36 Urine Urobilinogen 4.0 H Discharge - Discharge Clinical Impression: Low back pain Qualifiers: Chronicity: acute Back pain laterality: bilateral Sciatica presence: without sciatica Qualified Code(s): M54.5 - Low back pain Condition: Stable Disposition: HOME, SELF-CARE Instructions: Family Physicians / Practices Additional Instructions: LOW BACK PAIN: Three out of every four people will have an episode of disabling back pain during their lifetime. Most commonly the pain is due to straining of the muscles and ligaments in the low back. Usual treatment includes: (1) Rest on a firm surface. Avoid lying on your stomach. (2) Ice pack the painful area. After a few days, gentle heat may be used intermittently to relax the area, or ice packs can be continued. (3) Medication may be needed -- muscle relaxers and antiinflammatory medicines are commonly used. (4) As the back improves, exercises are prescribed to strengthen the back and abdominal muscles. Your doctor will advise you on the proper care for your back at each stage in your recovery. You may be better in a few days -- or healing may take several weeks. If new symptoms of a "herniated disc" (radiation of pain, numbness, or tingling down the back of the leg or weakness in the leg) occur, you should be re-examined. Further testing may be necessary. Ibuprofen Ibuprofen is an excellent, safe drug for pain control. In addition, it has potent antiinflammatory effects which are beneficial, especially in the treatment of injuries, arthritis, or tendonitis. It's best to take ibuprofen with food. Persons with ulcer disease or allergy to aspirin should notify their physician of this before taking ibuprofen. Take the medication exactly as prescribed. Don't take additional doses unless instructed to do so by your doctor. If you develop wheezing, shortness of breath, hives, faintness, stomach pain, vomiting, or dark black stools, return for re-evaluation at once. MUSCLE RELAXERS: Muscle relaxing medications are usually prescribed for acute muscle spasm or injury to the neck and back. They are often combined with antiinflammatory pain medication for increased relief. You may stop the muscle relaxer when the pain and stiffness have improved. Start the medication again if spasms recur. Muscle relaxers may cause drowsiness, especially with the first dose. Do not operate machinery or drive while under the effects of the medication. Most muscle relaxers last up to 24 hours. Do not combine the medication with alcohol. Stretching Exercises for the Back The physician has recommended that you begin stretching exercises for your back. These are often used even while the back is painful. However, you should notify the physician if the activities seem to increase your pain. PELVIC TILT: Lie flat on your back with knees bent. Tighten your stomach and buttock muscles so it flattens your lower back against the floor. Hold 10 seconds. Repeat 10 times, twice daily. KNEE RAISE: Lying on the back with knees bent, raise one knee to your chest, then the other. Hold both knees against the chest 10 seconds, then lower one knee at a time. Repeat 10 times, twice daily. PARTIAL TRUNK RAISE: Lie face down, arms at your sides. Keeping your waist on the floor, use your arms raise your chest up. Support yourself on your elbows for 30 seconds. Repeat twice daily, increasing the time to two minutes as you recover. Aspercreme applied to the area will often help with the back pain also ICE PACKS: Apply ice packs frequently against the painful area. Many different schedules are recommended, such as "20 minutes on, 20 minutes off" or "one hour ice, two hours rest." If you need to work, you may need to go longer between ice treatments. You should plan to have the area ice packed AT LEAST one fourth of the time. The ice should be applied over the wrap, tape, or splint, or over a layer of cloth -- not directly against the skin. Some ice bags have a built-in cloth and can be put directly on the skin. WARM PACKS: After approximately two days, apply gentle heat (such as a heating pad or hot water bottle) for about 20 to 30 minutes about every two hours -- at least four times daily. Warmth and elevation will help you make a more rapid recovery , and will ease the pain considerably. Do not use HOT heat, and never apply heat for longer than 30 minutes. The continuous heat can invisibly damage skin and muscles -- even when no burn is seen on the surface. Damaged muscles can make you MORE sore. FOLLOW-UP CARE: If you have been referred to a physician for follow-up care, call the physician s office for an appointment as you were instructed or within the next two days. If you experience worsening or a significant change in your symptoms, notify the physician immediately or return to the Emergency Department at any time for re-evaluation. Prescriptions: Ibuprofen 800 mg PO Q8HP PRN #20 tablet PRN Reason: Cyclobenzaprine HCl [Flexeril 10 mg Tablet] 10 mg PO TIDP PRN #15 tab PRN Reason: Forms: Elevated Blood Pressure, Smoking Cessation Education, Return to Work
[2017-01-23 15:09] LABS: APPEARANCE,URINE SLIGHTLY-CLOUDY; BILIRUBIN,URINE NEGATIVE (NEGATIVE); GLUCOSE, URINE NEGATIVE (NEGATIVE); KETONES,URINE NEGATIVE (NEGATIVE); LEUKOCYTE ESTERASE,URINE NEGATIVE (NEGATIVE); NITRITE,URINE NEGATIVE (NEGATIVE); PROTEIN,URINE NEGATIVE (NEGATIVE); URINE SPECIFIC GRAVITY 1.028
[2017-01-23] MEDS ORDERED: CYCLOBENZAPRINE HCL 10 MG TABLET PO ONE (15:59)
[2017-01-23] MEDS ORDERED: IBUPROFEN 800 MG TABLET PO ONE (15:59)
[2017-01-23 16:28] VITALS: BP 146/98
== END 2017-01-23 16:27 | disposition home or self-care (01) ==
LOC: ER 13:49
DX: M54.5 Low back pain (principal); F17.210 Nicotine dependence, cigarettes, uncomplicated
CPT/HCPCS: 81001; 81025; 99283

== ENCOUNTER 2017-08-13 07:21 | Emergency (ER) | payer BC ==
[2017-08-13] MEDS ORDERED: PROCHLORPERAZINE EDISYLATE INJ 10 MG/2 ML VIAL IV ONE (08:01)
[2017-08-13] MEDS ORDERED: DIPHENHYDRAMINE HCL 50 MG/ML VIAL IV ONE ×2 (08:01→08:08)
[2017-08-13] MEDS ORDERED: KETOROLAC TROMETHAMINE INJ/PF 30 MG/1 ML SDV IV ONE (08:01)
[2017-08-13] MEDS ORDERED: NORMAL SALINE 1000 ML 1,000 ML IV ONE (08:02)
--- NOTE | 2017-08-13 08:02 | ER Document Report ---
ED Headache - General Chief Complaint: Headache Stated Complaint: HEADACHCE Time Seen by Provider: 08/13/17 08:01 Mode of Arrival: Ambulatory Information source: Patient Notes: 27 yo female smoker with untx hypertension for years (no PCP) is c/o frontal to bilateral temples since thursday woke up with it 2, this morning 3.5/5. No hx headaches. Mild nausea. LMP . No hormones or contraceptives. Mild ear pain. No fever or chills. No sinus pain. No chest pain, abd. pain, v/d. TRAVEL OUTSIDE OF THE [place] IN LAST 30 DAYS: No - Related Data Allergies/Adverse Reactions: No Known Allergies Allergy (Verified 08/13/17 07:42) Past Medical History - General Information source: Patient - Social History Smoking Status: Current Every Day Smoker Frequency of alcohol use: Occasional Drug Abuse: None Lives with: Spouse/Significant other Family History: DM, Hyperlipidemia, Hypertension, Thyroid Disfunction Renal/ Medical History: Reports: Hx Ovarian Cysts, Hx Pelvic Inflammatory Disease. Denies: Hx Peritoneal Dialysis Musculoskeltal Medical History: Reports Hx Musculoskeletal Trauma Skin Medical History: Reports Hx Cellulitis, Reports Hx Eczema Past Surgical History: Reports: None - Immunizations Immunizations up to date: Yes Hx Diphtheria, Pertussis, Tetanus Vaccination: Yes Review of Systems - Review of Systems Constitutional: No symptoms reported EENT: No symptoms reported Cardiovascular: No symptoms reported Respiratory: No symptoms reported Gastrointestinal: No symptoms reported Genitourinary: No symptoms reported Female Genitourinary: No symptoms reported Musculoskeletal: No symptoms reported Skin: No symptoms reported Hematologic/Lymphatic: No symptoms reported Neurological/Psychological: See HPI Physical Exam - Vital signs Vitals: Temp Pulse Resp BP Pulse Ox 98.8 F 84 18 148/103 H 100 08/13/17 07:27 08/13/17 07:27 08/13/17 07:27 08/13/17 07:27 08/13/17 07:27 Interpretation: Normal - General General appearance: Appears well, Alert In distress: None - HEENT Head: Normocephalic, Atraumatic Eyes: Normal Conjunctiva: Normal Extraocular movements intact: Yes Pupils: PERRL Tympanic membrane: Normal Sinus: Maxillary - left maxillary sinus Nasal: Normal Neck: Supple. No: Lymphadenopathy - Respiratory Respiratory status: No respiratory distress Chest status: Nontender Breath sounds: Normal Chest palpation: Normal - Cardiovascular Rhythm: Regular Heart sounds: Normal auscultation Murmur: No - Abdominal Inspection: Normal Distension: No distension Bowel sounds: Normal Tenderness: Nontender Organomegaly: No organomegaly - Back Back: Normal, Nontender - Extremities General upper extremity: Normal inspection, Nontender, Normal color, Normal ROM , Normal temperature General lower extremity: Normal inspection, Nontender, Normal color, Normal ROM , Normal temperature, Normal weight bearing. No: Terrell's sign - Neurological Neuro grossly intact: Yes Cognition: Normal Orientation: AAOx4 [place] Coma Scale Eye Opening: Spontaneous Luis F Coma Scale Verbal: Oriented Luis F Coma Scale Motor: Obeys Commands Luis F Coma Scale Total: 15 Speech: Normal Motor strength normal: LUE, RUE, LLE, RLE Sensory: Normal - Psychological Associated symptoms: Normal affect, Normal mood - Skin Skin Temperature: Warm Skin Moisture: Dry Skin Color: Normal Course - Re-evaluation Re-evalutation: 08/13/17 08:51 CT scan shows left maxillary sinusitis with air-fluid levels.. Patient states the headache is back down to level 2/5 without medications. 08/13/17 09:56 Labs are normal. Negative test. Headache is 0/5 after the medication manual blood pressure is still 148/100 I will treat her with some antihypertensives and refer to family practice or [facility] 08/13/17 10:00 08/13/17 10:01 - Vital Signs Vital signs: Temp Pulse Resp BP Pulse Ox 98.8 F 88 18 148/100 H 100 08/13/17 07:30 08/13/17 07:30 08/13/17 07:27 08/13/17 09:40 08/13/17 07:30 - Laboratory Result Diagrams: 08/13/17 08:34 08/13/17 08:34 Laboratory results interpreted by me: 08/13/17 08:34 RDW 14.9 H Discharge - Discharge Clinical Impression: sinusitis Headache Qualifiers: Headache type: unspecified Headache chronicity pattern: unspecified pattern Intractability: not intractable Qualified Code(s): R51 - Headache Hypertension Qualifiers: Hypertension type: essential hypertension Qualified Code(s): I10 - Essential ( primary) hypertension Condition: Good Disposition: HOME, SELF-CARE Instructions: Headache ([facility]), Use of Diphenhydramine, Reglan ([facility]), High Blood Pressure, Requiring Treatment ([facility]), Angiotensin Converting Enzyme Inhibitor Medication ([facility]), Family Physicians / Practices, Amoxicillin ([facility]) Additional Instructions: do not get while taking this blood pressure medication! see family practice doctor for your blood pressure Return to the emergency room if symptoms worsen Referral to family practice doctor or [facility] Antibiotics for the sinus infection Tylenol for headache Prescriptions: Amoxicillin Trihydrate [Amoxil 500 mg Capsule] 1,000 mg PO BID #30 cap Losartan Potassium 25 mg PO DAILY #30 tablet Forms: Return to Work
[2017-08-13] MEDS ORDERED: METOCLOPRAMIDE HCL INJ/PF 10 MG/2 ML SDV IV ONE (08:07)
--- NOTE | 2017-08-13 08:37 | RADIOLOGY REPORT (SQ) ---
EXAM DESCRIPTION: CT HEAD WITHOUT COMPLETED DATE/TIME: 08/13/2017 8:21 am REASON FOR STUDY: headache COMPARISON: 12/19/2008 TECHNIQUE: Axial images acquired through the brain without intravenous contrast. Images reviewed wi th bone, brain and subdural windows. Additional sagittal and coronal reconstructions were generated. Images stored on PACS. All CT scanners at this facility use dose modulation, iterative reconstruction, and/or weight based d osing when appropriate to reduce radiation dose to as low as reasonably achievable (ALARA). [facility]: Dose Right [facility]: CareDose [facility]: Dose Right [facility]: Teradose 4D [facility]: [employer] RADIATION DOSE: CT Rad equipment meets quality standard of care and radiation dose reduction techniq ues were employed. CTDIvol: 53.2 mGy. DLP: 1097 mGy-cm. mGy. LIMITATIONS: None. FINDINGS: VENTRICLES: Normal size and contour. CEREBRUM: No masses. No hemorrhage. No midline shift. No evidence for acute infarction. Normal gra y/white matter differentiation. No areas of low density in the white matter. CEREBELLUM: No masses. No hemorrhage. No alteration of density. No evidence for acute infarction. EXTRAAXIAL SPACES: No fluid collections. No masses. ORBITS AND GLOBE: No intra- or extraconal masses. Normal contour of globe without masses. CALVARIUM: No fracture. PARANASAL SINUSES: Left maxillary sinusitis with air-fluid level. SOFT TISSUES: No mass or hematoma. OTHER: No other significant finding. IMPRESSION: LEFT MAXILLARY SINUSITIS WITH AIR-FLUID LEVEL. OTHERWISE, UNREMARKABLE BRAIN CT WITHOUT CONTRAST. EVIDENCE OF ACUTE STROKE: NO. COMMENT: Quality ID # [id number]: Final reports with documentation of one or more dose reduction techniques (e.g., Automated exposure control, adjustment of the mA and/or kV according to patient size, use of iterative reconstruction technique) TECHNICAL DOCUMENTATION: JOB ID: [id number] [employer]- All Rights Reserved Reading location - IP/workstation name: [email or web address]
[2017-08-13 08:55] LABS: ABSOLUTE BASOPHILS # (AUTO) 0.1 10^3/uL (0.0-0.2); ABSOLUTE EOSINOPHILS # (AUTO) 0.2 10^3/uL (0.0-0.6); ABSOLUTE LYMPHOCYTES (AUTO) 1.2 10^3/uL (0.5-4.7); ABSOLUTE MONOCYTES (AUTO) 0.4 10^3/uL (0.1-1.4); ABSOLUTE NEUT (AUTO) 2.7 10^3/uL (1.7-8.2); BASOPHILS % (AUTO) 1.1 % (0-2); EOSINOPHILS % (AUTO) 3.4 % (0-6); HEMATOCRIT 41.7 % (36.0-47.0); HEMOGLOBIN 13.9 g/dL (12.0-15.5); LYMPHOCYTES % (AUTO) 26.8 % (13-45); MEAN CORPUSCULAR HEMOGLOBIN 27.7 pg (27.0-33.4); MEAN CORPUSCULAR HGB CONC 33.3 g/dL (32.0-36.0); MEAN CORPUSCULAR VOLUME 83 fl (80-97); MONOCYTES % (AUTO) 8.7 % (3-13); PLATELET COUNT 161 10^3/uL (150-450); RED BLOOD COUNT 5.02 10^6/uL (3.72-5.28); RED CELL DISTRIBUTION WIDTH 14.9 % (11.5-14.0); TOTAL CELLS COUNTED % (AUTO) 100 %; WHITE BLOOD COUNT 4.5 10^3/uL (4.0-10.5)
[2017-08-13 09:19] LABS: ALANINE AMINOTRANSFERASE 20 U/L (9-52); ALKALINE PHOSPHATASE 51 U/L (38-126); ANION GAP 11 (5-19); ASPARTATE AMINO TRANSFERASE 19 U/L (14-36); BILIRUBIN,DIRECT 0.2 mg/dL (0.0-0.4); BILIRUBIN,TOTAL 0.7 mg/dL (0.2-1.3); BLOOD UREA NITROGEN 11 mg/dL (7-20); CALCIUM 9.4 mg/dL (8.4-10.2); CARBON DIOXIDE 26 mmol/L (22-30); CHLORIDE 106 mmol/L (98-107); GLUCOSE 83 mg/dL (75-110); POTASSIUM 4.3 mmol/L (3.6-5.0); SODIUM 142.6 mmol/L (137-145); TOTAL PROTEIN 6.7 g/dL (6.3-8.2)
[2017-08-13 10:15] VITALS: BP 128/77
== END 2017-08-13 10:15 | disposition home or self-care (01) ==
LOC: ER 07:21
DX: J32.0 Chronic maxillary sinusitis (principal); I10 Essential (primary) hypertension; R51 Headache; R11.0 Nausea; H92.09 Otalgia, unspecified ear; F17.200 Nicotine dependence, unspecified, uncomplicated
CPT/HCPCS: 99284; 96361; 96374; 96375; 36415; 84703; 85025; 80053; 70450; J1200; J2765; J7030

== ENCOUNTER 2017-08-26 10:34 | Emergency (ER) | payer BC ==
[2017-08-26 11:02] VITALS: BP 131/85
[2017-08-26] MEDS ORDERED: GUAIFENESIN 600 MG TABLET.SA PO ONE (11:19)
[2017-08-26] MEDS ORDERED: PSEUDOEPHEDRINE HCL 30 MG TABLET PO ONE (11:19)
[2017-08-26] MEDS ORDERED: LORATADINE 10 MG TABLET PO ONE (11:19)
--- NOTE | 2017-08-26 11:25 | ER Document Report ---
ED General - General Chief Complaint: Sore Throat Stated Complaint: FLU SYMPTOMS Time Seen by Provider: 08/26/17 11:05 Mode of Arrival: Ambulatory Information source: Patient Notes: 27-year-old female presented ED complaint of bilateral hand pain times a week. She is also complaining of cough cold congestion since Thursday. TRAVEL OUTSIDE OF THE [place] IN LAST 30 DAYS: No - HPI Onset: Last week Onset/Duration: Gradual Quality of pain: Achy Severity: Moderate Pain Level: 4 Associated symptoms: Nonproductive cough, Rhinnorhea, Sinus pain/drainage, Sore throat, Other - Bilateral hand pain. denies: Fever Exacerbated by: Movement Relieved by: Denies Similar symptoms previously: Yes Recently seen / treated by doctor: No - Related Data Allergies/Adverse Reactions: No Known Allergies Allergy (Verified 08/26/17 10:43) Past Medical History - General Information source: Patient - Social History Smoking Status: Current Every Day Smoker Cigarette use (# per day): Yes Smoking Education Provided: Yes - 4 minutes Frequency of alcohol use: Occasional Drug Abuse: None Lives with: Spouse/Significant other Family History: DM, Hyperlipidemia, Hypertension, Thyroid Disfunction Patient has suicidal ideation: No Patient has homicidal ideation: No - Past Medical History Cardiac Medical History: Reports: None Pulmonary Medical History: Reports: None EENT Medical History: Reports: None Neurological Medical History: Reports: None Endocrine Medical History: Reports: None Renal/ Medical History: Reports: Hx Ovarian Cysts, Hx Pelvic Inflammatory Disease Malignancy Medical History: Reports: None GI Medical History: Reports: None Musculoskeltal Medical History: Reports Hx Musculoskeletal Trauma Skin Medical History: Reports Hx Cellulitis, Reports Hx Eczema Psychiatric Medical History: Reports: None Traumatic Medical History: Reports: None Infectious Medical History: Reports: None Surgical Hx: Negative Past Surgical History: Reports: None - Immunizations Immunizations up to date: Yes Hx Diphtheria, Pertussis, Tetanus Vaccination: Yes Review of Systems - Review of Systems Constitutional: No symptoms reported EENT: Nose discharge, Sinus pressure, Sinus discharge, Throat pain Cardiovascular: No symptoms reported Respiratory: No symptoms reported Gastrointestinal: No symptoms reported Genitourinary: No symptoms reported Female Genitourinary: No symptoms reported Musculoskeletal: Other - Pain in both wrist and hands Skin: No symptoms reported Hematologic/Lymphatic: No symptoms reported Neurological/Psychological: No symptoms reported Physical Exam - Vital signs Vitals: Temp Pulse Resp BP Pulse Ox 98.2 F 85 16 131/85 H 95 08/26/17 11:01 08/26/17 11:01 08/26/17 11:01 08/26/17 11:01 08/26/17 11:01 Interpretation: Normal - General General appearance: Appears well, Alert - HEENT Head: Normocephalic, Atraumatic Eyes: Normal Pupils: PERRL Ears: Normal External canal: Normal Tympanic membrane: Normal Sinus: Normal Nasal: Purulent discharge, Swelling Mouth/Lips: Normal Mucous membranes: Normal Pharynx: Post nasal drainage Neck: Anterior cervical chain - Respiratory Respiratory status: No respiratory distress Chest status: Nontender Breath sounds: Normal Chest palpation: Normal - Cardiovascular Rhythm: Regular Heart sounds: Normal auscultation Murmur: No - Abdominal Inspection: Normal Distension: No distension Bowel sounds: Normal Tenderness: Nontender Organomegaly: No organomegaly - Back Back: Normal, Nontender - Extremities General upper extremity: Normal inspection, Normal color, Normal ROM, Normal temperature General lower extremity: Normal inspection, Nontender, Normal color, Normal ROM , Normal temperature, Normal weight bearing. No: Terrell's sign Wrist: Tender. No: Limited ROM - Pain with range of motion Hand: Tender. No: No evidence of human bite, Swelling - Neurological Neuro grossly intact: Yes Cognition: Normal Orientation: AAOx4 [place] Coma Scale Eye Opening: Spontaneous Luis F Coma Scale Verbal: Oriented Luis F Coma Scale Motor: Obeys Commands Luis F Coma Scale Total: 15 Speech: Normal Motor strength normal: LUE, RUE, LLE, RLE Sensory: Normal - Psychological Associated symptoms: Normal affect, Normal mood - Skin Skin Temperature: Warm Skin Moisture: Dry Skin Color: Normal Course - Vital Signs Vital signs: Temp Pulse Resp BP Pulse Ox 98.2 F 85 16 131/85 H 95 08/26/17 11:01 08/26/17 11:01 08/26/17 11:01 08/26/17 11:01 08/26/17 11:01 Procedures - Immobilization Left Wrist Time completed: 11:32 Immobilizer type: Cock-up - Bilateral wrist Performed by: PCT Post-Proc Neuro Vasc Exam: Normal Alignment checked and good: Yes Discharge - Discharge Clinical Impression: Bilateral hand pain URI (upper respiratory infection) Qualifiers: URI type: unspecified URI Qualified Code(s): J06.9 - Acute upper respiratory infection, unspecified Condition: Stable Disposition: HOME, SELF-CARE Additional Instructions: UPPER RESPIRATORY ILLNESS: You have a viral infection of the respiratory passages -- a "cold." This common infection causes nasal congestion, drainage, and often sore throat and cough. It is highly contagious. The disease usually lasts about 10 to 14 days. There is no "cure" for the viral infection -- it must run its course. If there is a complication, such as bacterial infection in the nose, sinuses, middle ear, or bronchial tubes, antibiotics may be required. The antibiotics won't affect the virus. Drink plenty of fluids. A humidifier may help. An expectorant medication or decongestant may make you more comfortable. Use acetaminophen or ibuprofen for fever or aches. See the doctor if fever persists over two days, if there is any significant worsening of your symptoms, or if you simply fail to improve as expected. DECONGESTANT MEDICATION: A decongestant medicine has been suggested. Often this medicine is combined in the same tablet with an antihistamine or expectorant. This type of medicine is helpful in treating a bad cold or sinus condition, as well as in treatment of the nasal congestion of hay fever. It is not of much benefit for lung infections. Decongestant medicines are related to stimulants. They can cause an increase in blood pressure and heart rate. Persons with heart disease and high blood pressure should not take decongestants without discussing this with the physician. If you develop palpitations, chest pain, headache, or tremors, stop the medicine and consult your physician. COUGH-SUPPRESSANT & EXPECTORANT MEDICATION: You are to use a cough medication as needed for relief of symptoms. This medicine is a combination of an expectorant (to make the mucous thinner and more easily "coughed up") and a cough suppressant (to reduce the frequency of coughing). The cough-suppressant medicine is related to narcotics. You may experience mild nausea and sleepiness. Some patients who are very sensitive to narcotics may have stomach pain from this medicine. Taking the medicine with food reduces these side effects. Do not drive or work with machinery until you know how this medicine affects you. The expectorant should have no side effects. Iodine-containing expectorants (such as organidin) should not be taken by persons with active thyroid disease unless approved by your doctor. Call the doctor if you develop shortness of breath, hives, rash, itching, lightheadedness, or severe nausea and vomiting. USE OF ACETAMINOPHEN (Tylenol): Acetaminophen may be taken for pain relief or fever control. It's much safer than aspirin, offering a wider range of "safe" dosages. It is safe during . Some brand names are Tylenol, Panadol, Datril, Anacin 3, Tempra, and Liquiprin. Acetaminophen can be repeated every four hours. The following are maximum recommended dosages: >89 pounds or adults 650 mg to 900 mg Acetaminophen can be repeated every four hours. Maximum dose not to exceed 4000 mg a day. Carpal Tunnel Syndrome Your examination suggests carpal tunnel syndrome. This syndrome is due to pressure on a nerve in the wrist. The pressure may be caused by an old injury, hard work using the wrist, work involving repeated motions of the hand, wrist positions that keep pressure on the joint, or arthritis in the wrist. Typical symptoms are tingling, numbness, and pain in the palm, thumb, index and middle fingers, and one side of the ring finger. Often a splint, ice packs, and antiinflammatory medication make the symptoms go away. If the physician feels that your problem is chronic, you will be referred to a specialist for further care. If symptoms do not go away, carpal tunnel syndrome may require surgery. You should call the doctor if pain increases, if you develop difficulty using the thumb or fingers, or if major swelling occurs. SMOKING: If you smoke, you should stop smoking. The tar and chemicals in cigarette smoke are harmful. Smoking has been shown to cause: emphysema chronic bronchitis lung cancer mouth and throat cancer stomach and pancreas cancer premature aging defects In addition, smoking increases ear and lung infections in children of smokers. FOLLOW-UP CARE: If you have been referred to a physician for follow-up care, call the physician s office for an appointment as you were instructed or within the next two days. If you experience worsening or a significant change in your symptoms, notify the physician immediately or return to the Emergency Department at any time for re-evaluation. Forms: Elevated Blood Pressure, Smoking Cessation Education, Return to Work Referrals: ESTELLA GARCIA, [ACTIVE STAFF] - Follow up as needed
== END 2017-08-26 11:36 | disposition home or self-care (01) ==
LOC: ER 10:34
DX: J06.9 Acute upper respiratory infection, unspecified (principal); J02.9 Acute pharyngitis, unspecified; J34.89 Other specified disorders of nose and nasal sinuses; R05 Cough; M79.641 Pain in right hand; M79.642 Pain in left hand; M25.539 Pain in unspecified wrist; R09.82 Postnasal drip; F17.210 Nicotine dependence, cigarettes, uncomplicated; Z71.6 Tobacco abuse counseling
CPT/HCPCS: 99406; 99282; L3908 ×2